=== PATIENT | female | born 1955 | race Caucasian/White ===

== ENCOUNTER 2022-09-08 21:17 | Outpatient (CLI) | payer MEDICARE | END 2022-09-08 21:18 | disposition critical access hospital (66) | LOC: EMS 21:17 | DX: T78.40XA Allergy, unspecified, initial encounter (principal); R60.0 Localized edema; R09.89 Other specified symptoms and signs involving the circulatory and respiratory systems | CPT/HCPCS: A0425; A0429 ==

== ENCOUNTER 2022-09-08 21:35 | Emergency (ER) | payer MEDICARE ==
[2022-09-08] MEDS ORDERED: DEXAMETHASONE 10 MG/ML VIAL IVP STA (21:44)
[2022-09-08] MEDS ORDERED: TRANEXAMIC ACID 1,000 MG in SODIUM CHLORIDE 0.9% 100ML 100 ML IV STA (21:46)
[2022-09-08 21:47] VITALS: BP 172/88
[2022-09-08] MEDS ORDERED: TRANEXAMIC ACID 1,000 MG/10 ML VIAL ONE (21:52)
--- NOTE | 2022-09-08 22:58 | ED Physician Documentation ---
History of Present Illness - Stated complaint Stated Complaint: ALLEGIC REACTION - Chief complaint Chief Complaint: Allergic Rx - History obtained from History obtained from: Patient, EMS - History of Present Illness Timing: How many hours ago (2) Pain level max: 0 Pain level now: 0 - Additonal information Additional information: 67-year-old female presents to the emergency department with swelling to the lower lip. This started about 2 hours ago. Has not had similar symptoms previously. No itching. No difficulty speaking or swallowing. She does take lisinopril. No new soaps, detergents, medications, foods. She took Benadryl prior to arrival. No chest pain. No shortness of breath. No rash. Nothing makes it better or worse Review of Systems Constitutional: denies: Fever, Chills Nose: denies: Rhinorrhea / runny nose, Congestion GI: denies: Vomiting, Diarrhea Skin: denies: Rash Musculoskeletal: denies: Neck pain, Back pain Neurologic: denies: Headache PD PAST MEDICAL HISTORY - Past Medical History Past Medical History: Yes Cardiovascular: Hypertension - Allergies Allergies/Adverse Reactions: Allergies Allergy/AdvReac Type Severity Reaction Status Date / Time No Known Drug Allergies Allergy Verified 09/08/22 21:44 - Living Situation Living Arrangement: reports: At home - Social History Does the pt have substance abuse?: No PD ED PE NORMAL - Vitals Vital signs reviewed: Yes - General General: Alert and oriented X 3, No acute distress - HEENT HEENT: Moist mucous membranes, Pharynx benign, Other (Mild swelling to the right side of the lower lip. Otherwise normal oropharyngeal exam. Normal phonation. 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 She was given dexamethasone and tranexamic acid. She was observed in the emergency department and symptoms nearly completely resolved. No evidence of anaphylaxis. We will have her stop the lisinopril. She is comfortable going home at this time. She will return if she worsens. She states that she feels her symptoms are fully resolved. Patient counseled regarding signs and symptoms for which I believe and urgent re-evaluation would be necessary. Patient with good understanding of and agreement to plan and is comfortable going home at this time This document was made in part using voice recognition software. While efforts are made to proofread this document, sound alike and grammatical errors may occur. 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 Please stop your lisinopri l. Please contact your doctor tomorrow to discuss alternative medications for your blood pressure. You are improving after medications tonight. Please return if you worsen. You may need further medication to help reduce the angioedema if the symptoms recur. Discharge Date/Time: 09/08/22 23:05
== END 2022-09-08 23:05 | disposition home or self-care (01) ==
LOC: ED 21:35
DX: T78.3XXA Angioneurotic edema, initial encounter (principal); T50.995A Adverse effect of other drugs, medicaments and biological substances, initial encounter; I10 Essential (primary) hypertension
CPT/HCPCS: 96365; 96375; 99284